=== PATIENT | male | born 1955 | race Caucasian/White ===

== ENCOUNTER 2016-08-30 05:36 | Outpatient (CLI) | payer OTHER ==
[~2016-08-30] VITALS: Ht 177.8 cm; Wt 85.7 kg
[~2016-08-30 05:36] MED LIST: ASP81TEC PO; BNZ10T PO; SENN-75 PO
[2016-09-03] MEDS ORDERED: HYDR-3875 PO ×2 (09:57)
[2016-09-03] MEDS ORDERED: HYOS0.1281 PO ×2 (09:57)
[2016-09-03] MEDS ORDERED: LEVO500T2 PO ×2 (09:57)
[2016-09-03] MEDS ORDERED: PHEN-640 PO ×2 (09:57)
== END 2016-08-30 12:26 ==
LOC: PREOP 05:36
PROVIDERS: ATTEND Urology
DX: Z01.818 Encounter for other preprocedural examination (principal); D49.4 Neoplasm of unspecified behavior of bladder

== ENCOUNTER 2016-09-03 05:56 | Day surgery (SDC) | payer OTHER ==
[~2016-09-03] VITALS: Ht 177.8 cm; Wt 85.7 kg
[2016-09-03] MEDS: LACTATED RINGERS 1,000 ML IV PRN ×2 (06:30→09:15)
[2016-09-03] MEDS ORDERED: cefTRIAXone 1 GM (ROCEPHIN) VIAL ONE (06:30)
[2016-09-03] MEDS ORDERED: fentaNYL INJECTION 100 MCG/2 ML AMP IV PRN (06:30)
[2016-09-03] MEDS ORDERED: NS (IVPB) 50 ML ONE (06:31)
[2016-09-03 06:35] VITALS: BP 138/87
[2016-09-03] MEDS ORDERED: MIDAZOLAM 2 MG/2 ML (VERSED) VIAL ONE (06:52)
[2016-09-03] MEDS ORDERED: proPOfol 200 MG/20 ML (DIPRIVAN) VIAL IV ONE (06:52)
[2016-09-03] MEDS ORDERED: LIDOCAINE PF 2% 5 ML (XYLOCAINE) VIAL ONE (06:52)
[2016-09-03] MEDS ORDERED: fentaNYL INJECTION 100 MCG/2 ML AMP ONE (06:56)
[2016-09-03] MEDS ORDERED: LACTATED RINGERS 1,000 ML IV ONE (06:56)
[2016-09-03] MEDS ORDERED: SEVOFLURANE (ULTANE) 15 ML INHAL SOLN ONE ×3 (06:56→07:37)
[2016-09-03] MEDS ORDERED: cefTRIAXone 1 GM/NS 50 ML IVPB IV ONE ×2 (07:00)
--- NOTE | 2016-09-03 07:07 | Progress Note-Pre Operative ---
Pre-Operative Progress Note H&P Reviewed The H&P was reviewed, patient examined and no changes noted. Date Seen by Provider: Sep 03, 2016 Time Seen by Provider: 07:06 Date H&P Reviewed: Sep 03, 2016 Time H&P Reviewed: 07:06 Pre-Operative Diagnosis: BLADDER TUMOR SOFIA BLACK MD Sep 03, 2016 7:07 am
[2016-09-03] MEDS ORDERED: ONDANSETRON 4 MG/2 ML (SDV) Z0FRAN ONE (07:37)
--- NOTE | 2016-09-03 07:56 | Progress Note-Post Operative ---
Post-Operative Progess Note Surgeon (s)/Lean Manufacturing Engineer (s) Surgeon SOFIA BLACK MD Lean Manufacturing Engineer: N/A Pre-Operative Diagnosis BLADDER TUMOR Post-Operative Diagnosis SAME, HIGH RIDING MEDIUM BAR, AND TIGHT URETHRA Procedure & Operative Findings Date of Procedure 09/03/16 Procedure Performed/Findings TURBT MEDIUM SIZE AND ABOVE FINDINGS Anesthesia Type GENERAL Estimated Blood Loss Estimated blood loss (mL): NEGLIGIBLE Specimens/Packing Specimens Removed BLADDER TUMOR CHIPS AND BASE (2) Packing: N/A SOFIA BLACK MD Sep 03, 2016 7:56 am
--- NOTE | 2016-09-03 07:58 | Discharge Inst-Urology ---
Discharge Inst-Urology Discharge Medications New, Converted, or Re-newed RX: RX on Chart Patient Instructions/Follow Up Plan D/C Desouza when fully awake, alert, and no bleeding. Please make appointment to been seen in office in 2 weeks. Increase oral fluids for 48 hours and then as needed. Diet and Activity as tolerated. If questions or concerns contact your physician Or seek help at emergency department. SOFIA BLACK MD Sep 03, 2016 7:58 am
[2016-09-03 09:00] VITALS: BP 136/86
[2016-09-03] MEDS ORDERED: HYDROcodone/APAP 7.5 MG/325 MG (LORTAB, LORCET PLUS) TABLET PO ONE ×2 (09:15→09:45)
[2016-09-03 09:30] VITALS: BP 134/84
[2016-09-03] MEDS ORDERED: PHEN-640 PO (09:57)
[2016-09-03] MEDS ORDERED: HYOS0.1281 PO (09:57)
[2016-09-03] MEDS ORDERED: LEVO500T2 PO (09:57)
[2016-09-03] MEDS ORDERED: HYDR-3875 PO (09:57)
[2016-09-03 10:00] VITALS: BP 129/85
--- NOTE | 2016-09-03 12:24 | OPERATIVE REPORT ---
PROCEDURE PHYSICIAN: SOFIA BLACK DATE OF PROCEDURE: 09/03/2016 PREOPERATIVE DIAGNOSIS: Medium size bladder tumor. POSTOPERATIVE DIAGNOSIS: 1. Medium size bladder tumor. 2. High riding median bar prostate and tight urethra. OPERATION PERFORMED: Urethral dilatation and transurethral resection of bladder tumor. SURGEON: James. ANESTHESIA: General. COMPLICATIONS: None. PROCEDURE: Under satisfactory general anesthesia, the patient in lithotomy position, the genitalia were prepped and draped in usual sterile fashion. The urethra was dilated to Bureau sound to number 28 Micronesian, was pretty tight. 27-Micronesian Rosenbaum resectoscope was introduced in the bladder. Again visualized the enlarged prostatic lateral lobe and high riding median bar. The bladder was entered and revealed trabeculation and the only abnormality was a single medium size bladder tumor in the posterior wall toward the right side away from the ureteral orifices. It was very superficial and easily shelled off the wall and then 2 bites were taken from the base. The edges and the base were cauterized and resection was complete and hemostasis as well. The bladder chips were sent separately from the two bladder tumor base bites. The resectoscope was removed and there was some oozing from the dilatation; I elected to leave a catheter until the patient wakes up and decide on it later on. I inserted an 18-Micronesian Desouza catheter, 2-way 5 mL balloon, the balloon inflated to 10 mL the return of which was pinkish. There was mild ooze of blood around the catheter. Blood loss less than 50 mL, none of which was replaced. The patient tolerated the procedure and anesthesia well and sent to recovery room in stable condition. Instructions were given to the . Job ID: [id number] Dictated Date: 09/03/2016 08:01:48 Manufactured Buildings Supervisor Date: 09/03/2016 12:09:32 / edyta ABBOTT
== END 2016-09-03 10:23 | disposition home or self-care (01) ==
LOC: SDC 05:56
PROVIDERS: ATTEND Urology
DX: D49.4 Neoplasm of unspecified behavior of bladder (principal); I10 Essential (primary) hypertension
CPT/HCPCS: 87081